=== PATIENT | male | born 1995 | race African-American/Black ===

== ENCOUNTER 2022-01-12 11:01 | Emergency (ER) | payer MEDICAID, OTHER | END 2022-01-12 11:55 | disposition home or self-care (01) | LOC: CSHERS 11:01 | DX: U07.1 COVID-19 (principal) | CPT/HCPCS: 99283; U0003; U0005 ==

== ENCOUNTER 2023-06-06 18:05 | Emergency (ER) | payer OTHER ==
[2023-06-06 19:04] LABS: SARS-CoV-2 NAA Rapid Test Not Detected (NotDetected)
== END 2023-06-06 19:30 | disposition home or self-care (01) ==
LOC: CSHERS 18:05
DX: R51.9 Headache, unspecified (principal); Z20.822 Contact with and (suspected) exposure to COVID-19
CPT/HCPCS: 99284

== ENCOUNTER 2023-08-18 18:26 | Emergency (ER) | payer OTHER ==
[2023-08-18] MEDS ORDERED: Ibuprofen 800 MG TAB ONE (19:17)
[2023-08-18 19:22] LABS: SARS-CoV-2 NAA Rapid Test Not Detected (NotDetected)
== END 2023-08-18 19:30 | disposition home or self-care (01) ==
LOC: CSHERS 18:26
DX: J10.1 Influenza due to other identified influenza virus with other respiratory manifestations (principal)
CPT/HCPCS: 99283

== ENCOUNTER 2024-04-29 09:03 | Emergency (ER) | payer OTHER, SELFPAY ==
[2024-04-29] MEDS ORDERED: cefTRIAXone (ROCEPHIN) 1 GM VIAL ONE (09:28)
[2024-04-29 10:14] LABS: Bilirubin Neg (Negative); Blood, Urine 25 (Negative); Glucose, Urine (Dipstick) Normal (Negative); Ketone, Urine Negative (Negative); Leukocyte 100 (Negative); Nitrite Negative (Negative); Protein, Urine (Dipstick) Negative (Neg-Trace); Urobilinogen Normal mg/dL (Less than 2)
[2024-04-29 11:12] LABS: Clarity Slightly Cloudy (Clear)
[2024-04-29 11:30] LABS: Bacteria/HPF 1+ HPF (None Seen); CAUTI Indications for Culture Dysuria,urgency,freq; RBC/HPF 0-3 HPF (0-3); Squamous Epithelial 0-3 HPF (0-3); WBC/HPF 21-50 HPF (0-3)
[2024-04-29 11:32] LABS: Urine Culture Reflex Yes Yes
[2024-04-29 23:21] LABS: Chlam.trachomatis by PCR,Urine Not Detected (NotDetected); GC N.gonorrhoeae PCR,UrineVOID DETECTED (NotDetected)
== END 2024-04-29 09:44 | disposition home or self-care (01) ==
LOC: CSHERS 09:03
DX: R30.0 Dysuria (principal); F17.290 Nicotine dependence, other tobacco product, uncomplicated; Z20.2 Contact with and (suspected) exposure to infections with a predominantly sexual mode of transmission
CPT/HCPCS: 81001; 87086; 87491; 87591; 96372; 99283; J0696